=== PATIENT | female | born 1985 | race Caucasian/White ===

== ENCOUNTER 2018-11-09 11:04 | Emergency (ER) | payer OTHER ==
[~2018-11-09] VITALS: Ht 170.2 cm; Wt 90.9 kg
[2018-11-09 11:06] VITALS: Ht 170.2 cm; Wt 90.9 kg
[2018-11-09] MEDS ORDERED: IBUPROFEN800 MG PO (11:10)
[2018-11-09] MEDS ORDERED: NEURONTIN 300300 MG PO (11:10)
[2018-11-09] MEDS ORDERED: TRAZODONE HCL150 MG PO (11:10)
[2018-11-09 12:09] LABS: BASOPHILS 0.4 % (0-2); EOSINOPHILS 0.2 % (0-7); HEMATOCRIT 35.8 % (36.0-48.0); HEMOGLOBIN 12.8 g/dL (12-16); IMMATURE GRANULOCYTES 0.2 % (0-5); MCH 31.4 pg (26.0-34.0); MCHC 35.8 g/dL (31.0-37.0); MEAN PLATELET VOLUME 9.4 fL (7.4-10.4); MONOCYTES 10.3 % (2-11); NEUTROPHILS 61.9 % (40-80); PLATELET COUNT 341 10x3/uL (130-400); RBC 4.07 10x6/uL (4.00-5.40); RDW 11.9 % (11.5-14.5); WBC 12.2 10x3/uL (4.8-10.8)
[2018-11-09 12:25] LABS: ALBUMIN 4.2 g/dL (3.4-5.0); ALKALINE PHOSPHATASE 70 U/L (46-116); ALT (SGPT) 33 U/L (10-68); BILIRUBIN - TOTAL 0.89 mg/dL (0.2-1.3); CALC OSMOLALITY 278 mosm/kg (275-300); CALCIUM 9.6 mg/dL (8.5-10.1); CARBON DIOXIDE 24.4 mmol/L (21.0-32.0); CHLORIDE - SERUM 102 mmol/L (98-107); CREATININE - SERUM 0.9 mg/dL (0.6-1.3); GLUCOSE 94 mg/dL (74-106); POTASSIUM - SERUM 3.1 mmol/L (3.5-5.1); PROTEIN - SERUM 8.3 g/dL (6.4-8.2); SODIUM 139 mmol/L (136-145); UREA NITROGEN 14 mg/dL (7-18); eGFR NON AFRICAN AMERICAN 76 mL/min (90-120)
[2018-11-09 12:43] LABS: MAGNESIUM - SERUM 1.8 mg/dL (1.8-2.4)
[2018-11-09 12:48] LABS: CREATINE KINASE 1238 UL (21-215)
[2018-11-09 13:00] VITALS: BP 145/92
[2018-11-09 13:11] LABS: CKMB 8.4 U/L (0.0-3.6)
[2018-11-09 13:18] LABS: APPEARANCE CLEAR (CLEAR); COLOR YELLOW (YELLOW); GLUCOSE NEGATIVE (NEGATIVE); NITRITE NEGATIVE (NEGATIVE); PROTEIN NEGATIVE (NEGATIVE)
[2018-11-09 13:19] LABS: BILIRUBIN NEGATIVE (NEGATIVE); KETONE LARGE mg/dL (NEGATIVE); UROBILINOGEN NORMAL (NORMAL)
[2018-11-09 13:20] LABS: HCG URINE NEGATIVE (NEGATIVE)
[2018-11-09 13:30] LABS: UDS - AMPHET POSITIVE QUAL (NEGATIVE); UDS - BARB NEGATIVE QUAL (NEGATIVE); UDS - BENZO NEGATIVE QUAL (NEGATIVE); UDS - COCAINE NEGATIVE QUAL (NEGATIVE); UDS - OPIATE NEGATIVE QUAL (NEGATIVE); UDS - PCP NEGATIVE QUAL (NEGATIVE); UDS - THC NEGATIVE QUAL (NEGATIVE)
== END 2018-11-09 14:43 | disposition home or self-care (01) ==
LOC: D.ER 11:04
PROVIDERS: Family Medicine
DX: M62.82 Rhabdomyolysis (principal); E87.6 Hypokalemia; F15.10 Other stimulant abuse, uncomplicated; M79.18 Myalgia, other site